=== PATIENT | male | born 1990 ===

== ENCOUNTER 2021-05-10 20:55 | Emergency (ER) | payer SELFPAY ==
[2021-05-10 21:55] VITALS: BP 147/82
--- NOTE | 2021-05-11 01:08 | Emergency Department Report ---
ED General Adult HPI - General Chief complaint: Abdominal Pain Stated complaint: Lower abdominal pain, now resolved Time Seen by Provider: 05/11/21 00:51 Source: patient, RN notes reviewed Mode of arrival: Ambulatory Limitations: Language Barrier - History of Present Illness Initial comments: The patient was evaluated in the emergency department for symptoms described in the history of present illness. He/she was evaluated in the context of the global COVID-19 pandemic, which necessitated consideration that the patient might be at risk for infection with the virus that causes COVID-19. Institutional protocols and algorithms that pertain to the evaluation of patients at risk for COVID-19 are in a state of rapid change based on information released by regulatory bodies including the CDC and federal and state organizations. These policies and algorithms were followed during the patient's care in the emergency department. Please note that these policies, procedures and recommendations changed on a rapid basis. This provider is conversant in Thai. The patient is a 30-year-old gentleman. He is not known to myself previously. He denies personal past medical history. He denies past surgical history. He denies past family medical history. He presents to the ER with a complaint of resolved left lower quadrant abdominal pain. He reports it is intermittent. And improved with Motrin this morning. He currently denies headache, neck pain, chest pain, abdominal pain, shortness of breath, nausea, vomiting or diarrhea. He also denies testicular pain. He might have mild urinary discomfort which is now resolved. He denies dysuria at this moment he does not have rectal pain. He may have hematuria, he is not certain. -: Sudden Consistency: intermittent, now resolved Improves with: medication Worsens with: none - Related Data Previous Rx's Medication Instructions Recorded Last Taken Type Acetaminophen [Non-Aspirin Extra 500 mg PO Q6HR PRN #30 tablet 05/11/21 Unknown Rx Strength] Ibuprofen [Motrin] 600 mg PO Q8H PRN #30 tablet 05/11/21 Unknown Rx Ondansetron [Zofran Odt] 4 mg PO Q8HR PRN #20 tab.rapdis 05/11/21 Unknown Rx Tamsulosin [Flomax] 0.4 mg PO QDAY #30 cap 05/11/21 Unknown Rx Allergies Allergy/AdvReac Type Severity Reaction Status Date / Time No Known Allergies Allergy Unverified 05/11/21 01:53 ED Review of Systems ROS: Stated complaint: PAIN IN SIDE X5 DAYS Other details as noted in HPI Constitutional: denies: fever ENT: denies: epistaxis Respiratory: denies: cough Cardiovascular: denies: chest pain Gastrointestinal: abdominal pain Genitourinary: denies: hematuria, testicular pain Musculoskeletal: denies: back pain Neurological: denies: weakness ED Past Medical Hx - Medications Home Medications: Home Medications Medication Instructions Recorded Confirmed Last Taken Type Acetaminophen [Non-Aspirin Extra 500 mg PO Q6HR PRN #30 tablet 05/11/21 Unknown Rx Strength] Ibuprofen [Motrin] 600 mg PO Q8H PRN #30 tablet 05/11/21 Unknown Rx Ondansetron [Zofran Odt] 4 mg PO Q8HR PRN #20 tab.rapdis 05/11/21 Unknown Rx Tamsulosin [Flomax] 0.4 mg PO QDAY #30 cap 05/11/21 Unknown Rx ED Physical Exam - General Limitations: Language Barrier General appearance: alert, in no apparent distress - Head Head exam: Present: atraumatic, normocephalic - Eye Eye exam: Present: normal appearance, EOMI. Absent: nystagmus - ENT ENT exam: Present: normal exam, normal orophraynx, mucous membranes moist, normal external ear exam - Neck Neck exam: Present: normal inspection, full ROM. Absent: tenderness, meningismus - Respiratory Respiratory exam: Present: normal lung sounds bilaterally. Absent: respiratory distress, wheezes, rales, rhonchi, stridor, decreased breath sounds - Cardiovascular Cardiovascular Exam: Present: normal rhythm, bradycardia, normal heart sounds. Absent: tachycardia, irregular rhythm, systolic murmur, diastolic murmur, rubs, gallop - GI/Abdominal GI/Abdominal exam: Present: soft, normal bowel sounds. Absent: distended, tenderness, guarding, rebound, rigid, pulsatile mass - Rectal Rectal exam: Present: deferred - exam: Present: normal inspection, other (There is normal testicular lie. There is normal cremasteric reflex. There is no testicular tenderness. There is no testicular swelling). Absent: testicular tenderness, circumcision (Patient uncircumcised) External exam: Present: normal external exam, other (Chaperoned by [employer]) - Extremities Exam Extremities exam: Present: normal inspection, full ROM, other (2+ pulses noted in the bilateral upper and lower extremities. There is no palpable cord. negative Homans sign. Muscular compartments are soft. The pelvis is stable.). Absent: pedal edema, calf tenderness - Back Exam Back exam: Present: normal inspection, full ROM. Absent: tenderness, CVA tenderness (R), CVA tenderness (L), paraspinal tenderness, vertebral tenderness - Neurological Exam Neurological exam: Present: alert, oriented X3, normal gait, other (No facial droop. Tongue midline. Extraocular movements intact bilaterally. Facial sensation intact to light touch in V1, V2, V3 distribution bilaterally. 5 and a 5 strength in 4 extremities. Sensation intact to light touch in 4 extremities.). Absent: motor sensory deficit - Psychiatric Psychiatric exam: Present: normal affect, normal mood - Skin Skin exam: Present: warm, dry, intact, normal color. Absent: rash ED Course Vital Signs 05/10/21 21:53 Temperature 97.8 F Pulse Rate 53 L Respiratory 16 Rate Blood Pressure 147/82 [Left] O2 Sat by Pulse 98 Oximetry - Reevaluation(s) Reevaluation #1: 05/11/21 01:04 Differential diagnosis, including but not limited to: Constipation, IBS, renal colic, Assessment and plan: 30-year-old gentleman, who is afebrile, with reassuring vital signs, with no abdominal pain, tenderness, rebound or guarding at this time, who has a benign and unremarkable abdominal examination, resting comfortably in stretcher, in no acute distress, on the cellular phone. Examination and history not suggestive of emergent surgical condition at this time. Male examination unremarkable. Patient endorsed nonspecific urinary symptoms. Check urinalysis. As needed Tylenol/ibuprofen. 05/11/21 04:24 Patient was found to have hematuria, therefore, we obtain noncontrast CT scan of the abdomen pelvis, as well as basic laboratory studies. He was found to have a 9.4 mm bladder stone, as well as left-sided UVJ stones, with mild hydronep hrosis. He did have some reactive changes likely secondary to hydronephrosis. Given urinalysis findings, lack of bacteria, lack of nitrates, overall benign appearance, I think infected stone is very unlikely. On multiple repeat assessments, the patient is resting comfortably in his stretcher, in no acute distress, and even sleeping. He at the moment does not have nausea or vomiting. Belly soft on repeat exam. Contacted urology on-call at [facility], Dr. Da Silva, as we do not have urology available for ER consultation, for expert opinion. We discussed the patient's history, physical, laboratory studies and imaging studies. We are both in agreement that the patient should benefit from medical expulsive therapy, analgesia, as needed antiemetics, we both agreed to not initiate antibiotics at this time. I have counseled the patient on the significance of his findings, need to drink plenty of water, and need to follow-up with outpatient . This patient has been observed in this department for hours, without clinical decompensation, and is suitable to follow-up with an outpatient urologist. ED Medical Decision Making - Lab Data Result diagrams: 05/11/21 02:50 05/11/21 02:50 Vital Signs 05/10/21 21:53 Temperature 97.8 F Pulse Rate 53 L Respiratory 16 Rate Blood Pressure 147/82 [Left] O2 Sat by Pulse [address] ABDOMEN AND PELVIS WITHOUT CONTRAST INDICATION / CLINICAL INFORMATION: Lower abdominal pain, hematuria, dysuria. TECHNIQUE: Axial CT images were obtained through the abdomen and pelvis without IV contrast. All CT scans at this location are performed using CT dose reduction for ALARA by means of automated exposure control. COMPARISON: None available. FINDINGS: LOWER CHEST: No significant abnormality. LIVER: No significant abnormality. GALLBLADDER: No significant abnormality. BILE DUCTS: No significant abnormality. PANCREAS: No significant abnormality. SPLEEN: No significant abnormality. ADRENALS: No significant abnormality. RIGHT KIDNEY / URETER: No significant abnormality. LEFT KIDNEY / URETER: There are three mildly obstructive stones measuring up to 5.4 mm distal left ureteral stone seen on image 170 of series 2 located pk roximately 1 cm from the UVJ. There is mild left perinephric/periureteral fat stranding. No other significant abnormality. STOMACH / SMALL BOWEL: No significant abnormality. COLON: No significant abnormality. APPENDIX: No significant abnormality. PERITONEUM: No free fluid. No free air. No fluid col lection. LYMPH NODES: No significant adenopathy. AORTA / ARTERIES: No significant abnormality. IVC / VEINS: No significant abnormality. URINARY BLADDER: A 9.5 mm stone is seen dependently along the bladder near the left UVJ. No other significant abnormality. REPRODUCTIVE ORGANS: No significant abno rmality. ADDITIONAL FINDINGS: None. SKELETAL SYSTEM: No significant abnormality. IMPRESSION: 1. Mildly obstructive distal left ureteral stones as above. 2. 9.5 mm stone in the bladder. Signer Name: Ari Gilbert MD Signed: 05/11/2021 2:32 AM Workstation Name: [id number] Vital Signs 05/10/21 21:53 Temperature 97.8 F Pulse Rate 53 L Respiratory 16 Rate Blood Pressure 147/82 [Left] O2 Sat by Pulse 98 Oximetry Lab Results 05/11/21 05/11/21 05/11/21 Range/Units 01:19 02:50 02:50 WBC 6.6 (4.5-11.0) K/mm3 RBC 4.80 (3.65-5.03) M/mm3 Hgb 14.9 (11.8-15.2) gm/dl Hct 44.8 (35.5-45.6) % MCV 93 (84-94) fl MCH 31 (28-32) pg MCHC 33 (32-34) % RDW 13.1 L (13.2-15.2) % Plt Count 255 (140-440) K/mm3 Lymph % (Auto) 30.5 (13.4-35.0) % [place] % (Auto) 6.4 (0.0-7.3) % Eos % (Auto) 2.2 (0.0-4.3) % Baso % (Auto) 0.7 (0.0-1.8) % Lymph # (Auto) 2.0 (1.2-5.4) K/mm3 [place] # (Auto) 0.4 (0.0-0.8) K/mm3 Eos # (Auto) 0.1 (0.0-0.4) K/mm3 Baso # (Auto) 0.0 (0.0-0.1) K/mm3 Seg Neutrophils % 60.2 (40.0-70.0) % Seg Neutrophils # 4.0 (1.8-7.7) K/mm3 Sodium 139 (137-145) mmol/L Potassium 4.2 (3.6-5.0) mmol/L Chloride 102.6 (98-107) mmol/L Carbon Dioxide 27 (22-30) mmol/L Anion Gap 14 mmol/L BUN 9 (9-20) mg/dL Creatinine 0.7 L (0.8-1.3) mg/dL Estimated GFR > 60 ml/min BUN/Creatinine Ratio 13 % Glucose 96 (75-100) mg/dL Calcium 9.1 (8.4-10.2) mg/dL Magnesium 2.30 (1.7-2.3) mg/dL Total Creatine Kinase 541 H (55-170) units/L Urine Color Yellow (Yellow) Urine Turbidity Slightly cloudy (Clear) Urine pH 6.0 (5.0-7.0) Ur Specific [place] 1.012 (1.003-1.030) Urine Protein 30 mg/dl (Negative) mg/dL Urine Glucose (UA) Neg (Negative) mg/dL Urine Ketones Neg (Negative) mg/dL Urine Blood Lg (Negative) Urine Nitrite Neg (Negative) Urine Bilirubin Neg (Negative) Urine Urobilinogen < 2.0 (<2.0) mg/dL Ur Leukocyte Esterase Tr (Negative) Urine WBC (Auto) 14.0 H (0.0-6.0) /HPF Urine RBC (Auto) > 182.0 (0.0-6.0) /HPF - Radiology Data Radiology results: report reviewed, image reviewed CT ABDOMEN AND PELVIS WITHOUT CONTRAST INDICATION / CLINICAL INFORMATION: Lower abdominal pain, hematuria, dysuria. TECHNIQUE: Axial CT images were obtained through the abdomen and pelvis without IV contrast. All CT scans at this location are performed using CT dose reduction for ALARA by means of automated exposure control. COMPARISON: None available. FINDINGS: LOWER CHEST: No significant abnormality. LIVER: No significant abnormality. GALLBLADDER: No significant abnormality. BILE DUCTS: No significant abnormality. PANCREAS: No significant abnormality. SPLEEN: No significant abnormality. ADRENALS: No significant abnormality. RIGHT KIDNEY / URETER: No significant abnormality. LEFT KIDNEY / URETER: There are three mildly obstructive stones measuring up to 5.4 mm distal left ureteral stone seen on image 170 of series 2 located approximately 1 cm from the UVJ. There is mild left perinephric/periureteral fat stranding. N o other significant abnormality. STOMACH / SMALL BOWEL: No significant abnormality. COLON: No significant abnormality. APPENDIX: No significant abnormality. PERITONEUM: No free fluid. No free air. No fluid collection. LYMPH NODES: No significant adenopathy. AORTA / ARTERIES: No significant abnormality. IVC / VEINS: No significant abnormality. URINARY BLADDER: A 9.5 mm stone is seen dependently along the bladder near the left UVJ. No other significant abnormality. REPRODUCTIVE ORGANS: No significant abnormality. ADDITIONAL FINDINGS: None. SKELETAL SYSTEM: No significant abnormality. IMPRESSION: 1. Mildly obstructive distal left ureteral stones as above. 2. 9.5 mm stone in the bladder. Signer Name: Ari Gilbert MD Signed: 05/11/2021 2:32 AM Workstation Name: [id number] Critical care attestation.: If time is entered above; I have spent that time in minutes in the direct care of this critically ill patient, excluding procedure time. ED Disposition Clinical Impression: Calculus of ureterovesical junction (UVJ), Bladder calculus, Hematuria Disposition: TO HOME OR SELFCARE Is pt being admited?: No Does the pt Need Aspirin: No Condition: Good Instructions: Bladder Stone, Hematuria, Adult, Renal Colic Additional Instructions: Please drink 4 to 6 cups of water per day indefinitely. Please follow-up with a urologist within the next 5 days. Take the pain medication, please return to the emergency room right away with new pain, worsened pain, migration of pain, fever, chills, projectile vomiting, change in mental status, confusion, inability to tolerate liquid feeds, new, worsened or different symptoms not present on the initial emergency room evaluation. Laboratory studies demonstrated blood in the urine, and CT scan of the abdomen pelvis demonstrated bladder stone and kidney stones. Most common cause of stones is dehydration and not enough water intake. Therefore, the patient should consume plenty of water. Poornima de 4 a 6 tazas de agua al da de forma indefinida. Sierra un seguimiento con un urlogo dentro de los prximos 5 amin. Vilonia la medicacin para el dolor, regrese a la tyron de emergencias de inmediato con nuevo dolor, empeoramiento del dolor, migracin del dolor, fiebre, escalofros, vmitos en proyectil, cambio en el estado mental, confusin, incapacidad para tolerar alimentos lquidos, sntomas nuevos, empeorados o diferentes. no presente en la evaluacin inicial de la tyron de emergencias. Los estudios de laboratorio demostraron kyler en la orina y la tomografa computarizada de la pelvis del abdomen mostr clculos en la vejiga y en los ri ones. La causa ms comn de clculos es la deshidratacin y marques ingesta insuficiente de agua. Por tanto, el paciente debe consumir benita agua. Referrals: [facility] [Provider Group] - 3-5 Days ANUM BARTON MD [Staff Physician] - 3-5 Days [facility] [Provider Group] - 3-5 Days Forms: Work/School Release Form(ED) Print Language: YI
[2021-05-11 01:54] LABS: Bilirubin,Urine NEG (Negative); Blood,Urine LG (Negative); Color,Urine Yellow (Yellow); Urobilinogen,Urine < 2.0 mg/dL (<2.0)
[2021-05-11 01:56] LABS: RBC,Urine > 182.0 /HPF (0.0-6.0)
[2021-05-11] MEDS ORDERED: ACETAMINOPHEN 500 MG TAB PO ONE (03:01)
[2021-05-11] MEDS ORDERED: IBUPROFEN 400 MG TAB PO ONE (03:01)
[2021-05-11 03:15] LABS: Basophils % (Auto) 0.7 % (0.0-1.8); Eosinophils # (Auto) 0.1 K/mm3 (0.0-0.4); Eosinophils % (Auto) 2.2 % (0.0-4.3); Hematocrit 44.8 % (35.5-45.6); Hemoglobin 14.9 gm/dl (11.8-15.2); Lymphocytes % (Auto) 30.5 % (13.4-35.0); Mean Corpuscular HGB Conc 33 % (32-34); Mean Corpuscular Volume 93 fl (84-94); Monocytes # (Auto) 0.4 K/mm3 (0.0-0.8); Monocytes % (Auto) 6.4 % (0.0-7.3); Platelet Count 255 K/mm3 (140-440); Red Cell Distribution Width 13.1 % (13.2-15.2)
[2021-05-11 03:33] LABS: Blood Urea Nitrogen 9 mg/dL (9-20); Calcium 9.1 mg/dL (8.4-10.2); Hemolysis Index 10
--- NOTE | 2021-05-11 03:37 | Cat Scan Report ---
CT ABDOMEN AND PELVIS WITHOUT CONTRAST INDICATION / CLINICAL INFORMATION: Lower abdominal pain, hematuria, dysuria. TECHNIQUE: Axial CT images were obtained through the abdomen and pelvis without IV contrast. All CT scans at [facility] location are performed using CT dose reduction for ALARA by means of automated exposure control. COMPARISON: None available. FINDINGS: LOWER CHEST: No significant abnormality. LIVER: No significant abnormality. GALLBLADDER: No significant abnormality. BILE DUCTS: No significant abnormality. PANCREAS: No significant abnormality. SPLEEN: No significant abnormality. ADRENALS: No significant abnormality. RIGHT KIDNEY / URETER: No significant abnormality. LEFT KIDNEY / URETER: There are three mildly obstructive stones measuring up to 5.4 mm distal left ur eteral stone seen on image 170 of series 2 located approximately 1 cm from the UVJ. There is mild lef t perinephric/periureteral fat stranding. No other significant abnormality. STOMACH / SMALL BOWEL: No significant abnormality. COLON: No significant abnormality. APPENDIX: No significant abnormality. PERITONEUM: No free fluid. No free air. No fluid collection. LYMPH NODES: No significant adenopathy. AORTA / ARTERIES: No significant abnormality. IVC / VEINS: No significant abnormality. URINARY BLADDER: A 9.5 mm stone is seen dependently along the bladder near the left UVJ. No other sig nificant abnormality. REPRODUCTIVE ORGANS: No significant abnormality. ADDITIONAL FINDINGS: None. SKELETAL SYSTEM: No significant abnormality. IMPRESSION: 1. Mildly obstructive distal left ureteral stones as above. 2. 9.5 mm stone in the bladder. Signer Name: Ari Gilbert MD Signed: 05/11/2021 3:32 AM Workstation Name: [id number]
[2021-05-11 03:38] LABS: BUN/Creatinine Ratio 13
== END 2021-05-11 05:10 | disposition home or self-care (01) ==
LOC: ED 20:55
DX: N20.1 Calculus of ureter (principal); N21.0 Calculus in bladder; R31.9 Hematuria, unspecified; Z79.899 Other long term (current) drug therapy
CPT/HCPCS: 36415; 74176; 80048; 81001; 82550; 83735; 85025; 87086